=== PATIENT | female | born 1960 | race Caucasian/White ===

== ENCOUNTER 2023-12-17 10:17 | Emergency (ER) | payer BC, SELFPAY ==
--- NOTE | ~2023-12-17 | XR_ITS ---
EXAMINATION: XR chest 2V 12/17/2023 10:55 INDICATION: Cough PROCEDURE: 2 view chest COMPARISON: No prior studies for comparison. FINDINGS: The lungs are clear. The cardiomediastinal silhouette is within normal limits. There are no pleural effusions. There is no pneumothorax suspected. IMPRESSION: 1: NO ACUTE CARDIOPULMONARY DISEASE. Reviewed, dictated and finalized at location A.
[2023-12-17 10:24] VITALS: BP 126/48; PULSE 82; RESP 20; TEMP 37; O2SAT 100
--- NOTE | 2023-12-17 10:41 | ED_ITS ---
HPI - General Adult General Chief complaint: Upper Respiratory Infection Stated complaint: Ear Problem/Chest Congestion Source: patient Mode of arrival: ambulatory Limitations: no limitations History of Present Illness HPI narrative: Patient presents for evaluation of sick symptoms. Symptom onset 4 days ago. She initially had bilateral ear pain. She then developed a frontal headache, sinus congestion, postnasal drip. She now has a sore throat, productive cough green sputum and shortness of breath. No fever, chills, nausea, vomiting. She works for the [employer] but is not aware of any specific sick contacts. She has been using an albuterol inhaler every 3 hours. She also has been taking Mucinex DM. She was given amoxicillin by her PCP without Related Data Home Medications Medication Instructions Recorded Confirmed albuterol sulfate 90 mcg/actuation See Rx Instructions .Route .COMPLEX 12/17/23 12/17/23 aerosol inhaler amoxicillin 875 mg tablet See Rx Instructions .Route .COMPLEX 12/17/23 12/17/23 lisinopril 10 1 tablet PO DAILY 12/17/23 12/17/23 mg-hydrochlorothiazide 12.5 mg tablet Allergies Allergy/AdvReac Type Severity Reaction Status Date / Time No Known Allergies Allergy Unknown Unverified 12/17/23 10:40 Review of Systems Review of Systems: CONSTITUTIONAL: Denies fever, chills, or sweats. EYES: Denies visual changes, redness, or discharge. ENT: Reports sinus congestion, thick green drainage from the nares, sore throat, and bilateral otalgia. CARDIOVASCULAR: Denies chest pain, palpitations, or edema. RESPIRATORY: Reports cough and shortness of breath GASTROINTESTINAL: Denies abdominal pain, nausea, vomiting, or diarrhea. GENITOURINARY: Denies dysuria or hematuria. SKIN: Denies rash or itching. MUSCULOSKELETAL: Denies back pain, joint pain, or myalgia. NEUROLOGIC: Reports headache. Denies numbness, dizziness, or weakness. PSYCHIATRIC: Denies anxiety or depression. [facility] Past Medical History Medical History Hypertension Surgical History Surgical History History of appendectomy History of cholecystectomy Family History Family History Mother Family history non-contributory Social History Social History Substance use: never Gender identity (if verbalized by the patient): Female Exam Narrative: GENERAL: Well-appearing, well-nourished, and in no acute distress. HEAD: Normocephalic, atraumatic. EYES: PERRLA and EOMI. ENT: Nares clear, no rhinorrhea or epistaxis. Mucous membranes moist. Oropharynx without tonsillar hypertrophy exudate or other lesions. Bilateral TMs pearly dyer nonbulging NECK: Supple. No adenopathy or masses. No carotid bruits or JVD CHEST: Cough present on exam. Clear to auscultation. No respiratory distress. No wheezes rales or rhonchi HEART: Regular rate and rhythm. No murmur heard. Normal peripheral pulses. ABDOMEN: Soft, nontender, nondistended, normal active bowel sounds. EXTREMITIES: Normal range of motion. No edema. SKIN: Warm, dry, no rash. NEURO: No focal deficits. Alert and oriented x3. PSYCH: Normal mood and affect. Course Course Emergency Course: This is a 63-year-old female who presented for evaluation of sick symptoms. COVID, flu, strep were negative. Chest x-ray normal. She reports wheezing at home so will dc with prednisone. Increase hydration. OTC agents for symptom management. Follow up with primary provider. Go to the ER for worsening symptoms. Pt in agreement with plan of care. Level of Care: Express Care Visit Vital Signs Vital signs: Vital Signs Temperature 37.0 C 12/17/23 10:24 Pulse Rate 82 12/17/23 10:24 Respiratory Rate 20 12/17/23 10:24 Blood Pressure 126/48 L 12/17/23 10:24 Pulse Oximetry 100 12/17/23 10:24 Oxygen Delivery Room Air 12/17/23 10:24 Temperature 37.0 C 12/17/23 10:47 Pulse Rate 82 12/17/23 10:47 Respiratory Rate 20 12/17/23 10:47 Blood Pressure 126/48 L 12/17/23 10:47 Pulse Oximetry 100 12/17/23 10:47 Oxygen Delivery Room Air 12/17/23 10:47 Medical Decision Making Vital Signs Vital Signs: Vital Signs Temperature 37.0 C 12/17/23 10:24 Pulse Rate 82 12/17/23 10:24 Respiratory Rate 20 12/17/23 10:24 Blood Pressure 126/48 L 12/17/23 10:24 Pulse Oximetry 100 12/17/23 10:24 Oxygen Delivery Room Air 12/17/23 10:24 Temperature 37.0 C 12/17/23 10:47 Pulse Rate 82 12/17/23 10:47 Respiratory Rate 20 12/17/23 10:47 Blood Pressure 126/48 L 12/17/23 10:47 Pulse Oximetry 100 12/17/23 10:47 Oxygen Delivery Room Air 12/17/23 10:47 Lab Data Labs: Influenza B Screen Negative Reference Range: Negative Strep Screen Presumptive Negative *(Reference Range: Negative)* Imaging Data Radiologist's impression: EXAMINATION: XR chest 2V 12/17/2023 10:55 INDICATION: Cough PROCEDURE:? 2 view chest COMPARISON: No prior studies for comparison. FINDINGS: The lungs are clear.? The cardiomediastinal silhouette is within normal limits.? There are no pleural effusions.? There is no pneumothorax suspected.? IMPRESSION: 1:? NO ACUTE CARDIOPULMONARY DISEASE. Discharge Plan Discharge Clinical Impression: Viral URI Patient Disposition: Home, Self-Care Condition: Stable Instructions: Antibiotic Form, Viral Syndrome (ED) Patient Language: Citizen Of [place] Prescriptions: New prednisone 50 mg tablet 50 mg PO DAILY Qty: 5 0RF No Action lisinopril-hydrochlorothiazide 10-12.5 mg tablet 1 tablet PO DAILY albuterol sulfate 90 mcg/actuation HFA aerosol inhaler See Rx Instructions .ROUTE .COMPLEX Rx Instructions: previously prescribed a long time ago amoxicillin 875 mg tablet See Rx Instructions .ROUTE .COMPLEX Rx Instructions: prescribed 4 days ago Follow-up/Referrals: Bernice,LEO Bradford [Primary Care Provider] - Time of Disposition: 11:13
[2023-12-17 10:47] VITALS: BP 126/48; PULSE 82; RESP 20; TEMP 37; O2SAT 100
== END 2023-12-17 11:15 | disposition home or self-care (01) ==
PROVIDERS: Emergency Provider Nurse Practitioner; PCP Physician Assistant
DX: J06.9 Acute upper respiratory infection, unspecified (principal); Z20.822 Contact with and (suspected) exposure to COVID-19; I10 Essential (primary) hypertension
CPT/HCPCS: 71046; 87081; 87426; 87804; 87880; 99203; G0463

== ENCOUNTER 2024-05-27 19:25 | Emergency (ER) | payer MEDICARE, BC, SELFPAY ==
[2024-05-27 19:33] VITALS: BP 123/53; PULSE 89; RESP 20; TEMP 36.8; O2SAT 97
--- NOTE | 2024-05-27 19:39 | ED.WOUNDLAC ---
HPI - Wound/Laceration General Chief Complaint: Wound/Laceration Stated Complaint: Laceration To Thumb History of Present Illness HPI narrative: Patient is a 64-year-old female, presents to Express Care with a laceration of the left thumb, volar aspect, sustained yesterday when she was using a knife to chip ice. She states she sustained a flap laceration that she cleaned under running water before applying pressure and controlling bleeding. She reports the area has been sore to touch since that time, she has had no further bleeding however she was concerned that the laceration was so deep she did evaluation today. She is right-hand dominant, she is uncertain when her last tetanus vaccination was received. She denies any additional associated symptoms or modifying factors. Related Data Home Medications Medication Instructions Recorded Confirmed lisinopril 10 1 tablet PO DAILY 12/17/23 05/27/24 mg-hydrochlorothiazide 12.5 mg tablet Allergies Allergy/AdvReac Type Severity Reaction Status Date / Time No Known Allergies Allergy Unknown Unverified 05/27/24 19:40 Review of Systems Integumentary/Breasts: Comments: refer to [facility] Past Medical History Medical History Hypertension Surgical History Surgical History History of appendectomy History of cholecystectomy Family History Family History Mother Family history non-contributory Social History Social History Substance use: never Gender identity (if verbalized by the patient): Female Exam Const: General: cooperative, healthy appearing and comfortable Nutritional Appearance: obese Orientation/consciousness: patient oriented x3 Limitations: no limitations HENMT: Head: normal to inspection Face/Nose/Sinus: Normal external nose present and Normal nares present Mouth: Yes lip normal Eyes: General: appearance normal, both eyes and all related structures Eyelids: eyelids normal Conjunctivae: conjunctivae normal Sclera: sclerae normal EOM: EOMs intact bilaterally Neck: Neck: normal visual inspection, full ROM, no meningeal signs and trachea midline Resp: Effort & Inspection: normal respiratory effort Auscultation: clear to auscultation bilaterally Cardio: Rate: regular rate Heart sounds: S1 normal heart sound present and S2 normal heart sound present Skin: Wounds: wounds noted Other: patient has a v-shaped flap laceration noted to the volar aspect of the left thumb along the radial side of the digit. There is no active bleeding, the wound margin is well approximated, there is no lymphangitis, no drainage or bleeding from the wound. Distal PMS intact Neuro: General: oriented to person, oriented to place, oriented to time and patient oriented x3 Cranial nerves: Yes CN's II-XII intact bilaterally Speech: normal speech Gait exam (Neuro): Normal gait present Motor exam (neuro): 5/5 motor strength present throughout Extrem: General: full ROM Course Course Emergency Course: laceration is greater than 12 hours old, will defer repair at this time as risk benefit discussion; concerned for increased recent infection repairing at this time. Will treat with oral antibiotics, a splint is placed for protection, follow-up with PCP for wound check in 3 days, sooner if healing concerns arise. A tetanus booster is provided. Patient verbalized understanding of instructions Level of Care: Express Care Visit ([id number]) MDM - Wound/Laceration MDM Narrative Medical decision making narrative: and she is agreeable discharged plan of care. Tdap, cephalexin, splint for protection Differential Diagnosis Differential diagnosis: Likely laceration and avulsion of skin Discharge Plan Discharge Clinical Im
[2024-05-27] MEDS: TETANUS,DIPHTHERIA,AC PERTUSSIS ADULT (0.5 ML) BOOSTRIX IM (19:49)
== END 2024-05-27 20:11 | disposition home or self-care (01) ==
PROVIDERS: Emergency Provider Nurse Practitioner Family; PCP Physician Assistant
DX: S61.012A Laceration without foreign body of left thumb without damage to nail, initial encounter (principal); W26.0XXA Contact with knife, initial encounter; I10 Essential (primary) hypertension; Z23 Encounter for immunization
CPT/HCPCS: 90471; 90715; 99213; G0463

== ENCOUNTER 2025-06-04 11:01 | Emergency (ER) | payer MEDICARE, MEDICAID, SELFPAY ==
[2025-06-04 11:07] VITALS: BP 135/64; PULSE 83; RESP 18; TEMP 36.5; O2SAT 98
--- NOTE | 2025-06-04 11:13 | ED.EAR ---
HPI - Ear Problem General Chief complaint: Ear Stated complaint: Ear Pain Time Seen by Provider: 06/04/25 11:14 Source: patient, RN notes reviewed and old records reviewed Mode of arrival: ambulatory Limitations: no limitations History of Present Illness HPI Narrative: 65-year-old female who presents to [facility] with complaints of left ear pain since yesterday evening. Patient reports that she does have history of seasonal allergies and takes daily Zyrtec,denies any sore throat, cough or any acute sinus congestion or any fevers. Patient reports that left ear started hurting yesterday evening and has been taking Tylenol and ibuprofen for her discomfort. MD Complaint: ear pain Location: left ear Severity: severe Discharge from ear: Reports no Treatment prior to arrival: oral analgesic (Tylenol and Ibuprofen) Related Data Home Medications ?Medication ?Instructions ?Recorded ?Confirmed ?Last Taken ?Type lisinopril 10 1 tablet PO DAILY 12/17/23 05/27/24 Unknown History mg-hydrochlorothiazide 12.5 mg tablet Allergies Allergy/AdvReac Type Severity Reaction Status Date / Time No Known Allergies Allergy Unknown Verified 06/04/25 11:06 Review of Systems Review of Systems: CONSTITUTIONAL: Denies malaise, chills, sweats, or fever. EYES: Denies visual changes, redness, or discharge. ENT: Reports no rhinorrhea, congestion, sinus pain, states left otalgia and no sore throat. CARDIOVASCULAR: Denies chest pain, palpitations, or edema. RESPIRATORY: Reports no cough.? Denies dyspnea. GASTROINTESTINAL: Denies abdominal pain, nausea, vomiting, diarrhea SKIN: Denies rash or itching. MUSCULOSKELETAL: Denies myalgia. NEUROLOGIC: Denies headache. All systems reviewed & are unremarkable except as noted in HPI and below [facility] Past Medical History Medical History (Updated 06/05/25 @ 08:37 by Carmel Anderson NP) Seasonal allergies History of sinus problem GERD (gastroesophageal reflux disease) Hypertension Surgical History Surgical History (Updated 06/05/25 @ 08:36 by Carmel Anderson NP) H/O inguinal hernia repair H/O section x2 History of cholecystectomy History of appendectomy Family History Family History Mother Family history non-contributory Social History Social History Substance use: never Gender identity (if verbalized by the patient): Female Comments At time of signature, agree with nursing past medical, surgical, social and family history. There is no relevant family history pertinent to the presenting complaint Exam Narrative: GENERAL: Well-appearing, well-nourished, and in no acute distress. HEAD: Normocephalic EYES: PERRLA, conjunctivae clear ENT: Nares clear, turbinates edematous and erythematous, clear discharge. Mucous membranes moist. TM pearly dyer with dull light reflex bilaterally; Left ear canal red with some excoriation no acute swelling of canal,no tragal tenderness. Oropharynx erythematous without lesions. Tonsils not enlarged and without exudate, no drooling, no hoarseness, no trismus, uvula midline. NECK: Supple. No lymphadenopathy CHEST: Clear to auscultation, breath sounds equal. No wheezing, rhonchi, rales, or stridor. No respiratory distress, speaks in full sentences.no cough noted SAO2 98% on room air HEART: Regular rate and rhythm. No murmur heard. SKIN: Warm, dry, no rash. NEURO: Alert and oriented x3. PSYCH: Normal mood and affect Course Course Emergency Course: Patient is aware of diagnosis, understands and agrees to treatment plan.? Anticipatory guidance given.? Patient agrees to follow-up as directed and is aware of reasons to seek care at the emergency department. Portions of this record may have been created with voice recognition software Level of Care: Express Care Visit Vital Signs Vital signs: Vital Signs Temperature 36.5 C 06/04/25 11:07 Pulse Rate 83 06/04/25 11:07 Respiratory Rate 18 06/04/25 11:07 Blood Pressure 135/64 06/04/25 11:07 Pulse Oximetry 98 06/04/25 11:07 Oxygen Delivery Room Air 06/04/25 11:07 Temperature 36.5 C 06/04/25 11:07 Pulse Rate 83 06/04/25 11:07 Respiratory Rate 18 06/04/25 11:07 Blood Pressure 135/64 06/04/25 11:07 Pulse Oximetry 98 06/04/25 11:07 Oxygen Delivery Room Air 06/04/25 11:07 Reviewed Medical Decision Making Differential Diagnosis Differential Diagnosis: URI, otitis externa, otitis media, viral infection Medical Records Medical records reviewed: Yes I reviewed the external patient's medical records. Vital Signs Vital Signs: Vital Signs Temperature 36.5 C 06/04/25 11:07 Pulse Rate 83 06/04/25 11:07 Respiratory Rate 18 06/04/25 11:07 Blood Pressure 135/64 06/04/25 11:07 Pulse Oximetry 98 06/04/25 11:07 Oxygen Delivery Room Air 06/04/25 11:07 Temperature 36.5 C 06/04/25 11:07 Pulse Rate 83 06/04/25 11:07 Respiratory Rate 18 06/04/25 11:07 Blood Pressure 135/64 06/04/25 11:07 Pulse Oximetry 98 06/04/25 11:07 Oxygen Delivery Room Air 06/04/25 11:07 reviewed Critical Care Time Critical Care Time Critical Care Time: No Discharge Plan Discharge Clinical Impression: Left otitis externa Qualifiers: Otitis externa type: diffuse Chronicity: acute Qualified Code(s): H60.312 - Diffuse otitis externa, left ear Patient Disposition: Home Condition: Stable Instructions: Antibiotic Form, Swimmer's Ear (GEN) Additional Instructions: Increase fluids especially juices and water [id number] cough and cold medicine of your choice for your symptoms Continue Zyrtec Claritin or Brooke daily Tylenol or ibuprofen for any fever pain per package instructions heat to the face 20-30 minutes 4-6 times a day for pain Salt water gargles, throat lozenges or throat sprays as desired Antibiotic ear drops to left ear as prescribed finish all doses If your symptoms persist, change or worsen significantly before you can contact your personal physician then please, without delay, go to the emergency department for further evaluation. Follow-up with PCP in 7-10 days or sooner if needed Follow up with PCP soon in regards to your blood pressure which is elevated above threshold for referral. Blood pressure above 120/80 may indicate pre-hypertension. 135/64 Patient Language: Nepali Prescriptions: New ofloxacin 0.3 % drops 5 drp LEFT EAR BID 7 Days Qty: 10 0RF No Action lisinopril-hydrochlorothiazide 10-12.5 mg tablet 1 tablet PO DAILY Follow-up/Referrals: Bernice,LEO Bradford [Primary Care Provider] Time of Disposition: 11:24 Quality Shanna Coma Scale Eyes: Open Verbal: Oriented and Alert Motor: Follows Commands Page Coma Total Score: 15
== END 2025-06-04 11:28 | disposition home or self-care (01) ==
PROVIDERS: Emergency Provider Registered Nurse; PCP Physician Assistant
DX: H60.312 Diffuse otitis externa, left ear (principal); I10 Essential (primary) hypertension; K21.9 Gastro-esophageal reflux disease without esophagitis
CPT/HCPCS: 99213; G0463

== ENCOUNTER 2025-07-27 19:35 | Emergency (ER) | payer MEDICARE, MEDICAID, SELFPAY ==
--- OUTSIDE RECORDS SUMMARY | 2025-07-27 19:38 | XMS_ITS | Clinical Summary ---
Author Organization [facility] Address [address] [place] [address] Phone Care Team Providers Care Insights Analyst Name Role Phone Sang Queen Primary Care Provider [phone] Allergies No known active allergies Medications lisinopril-hydr ochlorothiazide (PRINZIDE, ZESTORETIC) 10-12.5 MG Tablet Take 1 Tab by mouth daily. Active Ranitidine HCl 300 MG Capsule Take by mouth daily. Active HYDROcodone-usman taminophen (NORCO) 5-325 MG Tablet Take 1 Tab by mouth every 4 hours as needed for Pain. 14 Tab 0 10/05/2015 Active cyclobenzaprine (FLEXERIL) 10 MG Tablet Take 0.5 Tabs by mouth 3 times daily as needed for Muscle spasms. 10 Tab 0 10/05/2015 Active HYDROcodone-usman taminophen (NORCO) 5-325 MG TabletIndicatio ns:Pain, dental Take 1 Tablet by mouth every 6 hours as needed for Moderate or more severe pain. 12 Tablet 06/30/2023 Active Social History Tobacco Use Types Packs/Day Years Used Date Smoking Tobacco: Never Alcohol Use Standard Drinks/Week Comments Yes 0 (1 standard drink = 0.6 oz pur e alcohol) seldom Comments No Sex and Gender Information Value Date Recorded Sex Assigned at Not on file Legal Sex Female 7:59 PM CDT Gender Identity Not on file Sexual Orientation Not on file Last Filed Vital Signs Vital Sign Reading Time Taken Comments Blood Pressure 125/72 06/30/2023 6:01 PM CDT Pulse 86 06/30/2023 6:01 PM CDT Temperature 36.1 C (97 F) 06/30/2023 6:01 PM CDT Respiratory Rate 16 06/30/2023 6:01 PM CDT Oxygen Saturation 98% 06/30/2023 6:01 PM CDT Inhaled Oxygen Concentration - - Weight 125 kg (275 lb 9.2 oz) 06/30/2023 6:01 PM CDT Height 165.1 cm (5' 5) 06/30/2023 6:01 PM CDT Body Mass Index 45.86 06/30/2023 6:01 PM CDT Plan of Treatment Health Maintenance Due Date Last Done Comments DEXA Bone Density 1960 Hepatitis C Virus (HCV) Screening 1960 Mammogram 1960 TdaP Immunization 1958 Cologuard 2003 Immunochemical Fecal Occult Blood 2003 Pneumococcal Immunization (5 0+ years) (1 of 1 - PCV) 02/03/2008 Zoster Immunization (1 of 2) 02/03/2008 Respiratory Syncytial Virus (RSV) Immunization (Adult) (1 - Risk 60-74 years 1-dose series) 2018 Colonoscopy 11/02/2022 11/02/2012, 05/14/2010 Colorectal Cancer Screening 11/02/2022 Influenza Immunization (#1) 04/28/202505/29, 06/05/2017 SARS-COV-2 Immunization ( season) 2025 Hepatitis B Immunization Aged Out No longer eligible based on patient's age to complete this topic Human Papillomavirus (HPV) Immunization Aged Out No longer eligible b ased on patient's age to complete this topic Meningococcal Immunization (ACWY) Aged Out No longer eligible b ased on patient's age to complete this topic Rotavirus Immunization Aged Out No lo nger eligible based on patient's age to complete this topic Procedures Procedure Name Priority Date/Time Associated Diagnosis Comments COLONOSCOPY Routine 11/02/2012 from Last 3 Months or Most Recently Relevant to Health Maintenance Results * COLONOSCOPY (11/02/2012) Hubert Tomas MD PROCEDURE/MINOR SURGICAL ORDER LESIA Final Result from Last 3 Months or Most Recently Relevant to Health Maintenance Insurance MEDICARE [facility] Care Teams Insights Analyst Relationship Specialty Start Date End Date Sang Queen, ESTHER [address] [place] [address] PCP - General Physician Mapping Editor 07/15/15
--- OUTSIDE RECORDS SUMMARY | 2025-07-27 19:38 | XMS_ITS | Encounter Summary ---
Author Organization [facility] Address [address] [place] [id number] Care Team Providers Care Reimbursement Auditor Name Role Phone Sang Queen Primary Care Provider [phone] Encounter Details Date Type Department Care Team (Late st Contact Info) Description 08/27/2018 Community Orders [facility] EpicCare Link Sang Queen PA [address] [place] [address] Social History Tobacco Use Types Packs/Day Years Used Date Smoking Tobacco: Never Assessed Alcohol Use Standard Drinks/Week Comments No 0 (1 standard drink = 0.6 oz pur e alcohol) Comments Unknown Sex and Gender Information Value Date Recorded Sex Assigned at Not on file Legal Sex Female 1:36 AM R[employer]ST[employer] Gender Identity Not on file Sexual Orientation Not on file documented as of this encounter Plan of Treatment Not on file documented as of this encounter Visit Diagnoses Not on filedocumented in this encounter Care Teams Reimbursement Auditor Relationship Specialty Start Date End Date Sang Queen PA [address] [place] [address] PCP - General 11/20/16 documented as of this encounter
--- OUTSIDE RECORDS SUMMARY | 2025-07-27 19:39 | XMS_ITS | Clinical Summary ---
Author Organization [facility] Address [address] [place] [address] Care Team Providers Care Flatbed Stitcher Name Role Phone Sang Queen Primary Care Provider [phone] Allergies No known active allergies Medications benzonatate (TESSALON) 100 mg capsule TAKE 1 CAPSULE BY MOUTH THREE TIMES DAILY FOR UP TO 10 DAYS NEEDED FOR COUGH 02/24/2023 Active albuterol HFA (PROVENTIL HFA,VENTOLIN HFA,PROAIR HFA) 90 mcg/actuation inhaler 03/21/2023 Active Active Problems Problem Noted Date Diagnosed Date Hernia of anterior abdominal wall 07/03/2012 Overview (12/02/2016): Periumbilical hernia Surgical History Surgery Date Site/Laterality Comments UMBILICAL HERNIA REPAIR umbilical hernia OTHER SURGICAL HISTORY multiple surgeries for scalp laceration CHOLECYSTECTOMY Cholecystectomy SECTION section APPENDECTOMY Appendectomy HERNIA REPAIR 2007 Hernia repair APPENDECTOMY 1978 Appendectomy Medical History Medical History Date Comments History of multiple allergies Al elier Family History Medical History Relation Name Comments Lung cancer Father 2 Cancer -lung; C ause of : Cancer -lung Hypertension Mother 2 Hypertension; Other Mother 2 Alive and well; Lung cancer Other Family history of Cancer, lung; Other Other Family history of cancer, gastric; Relation Name Status Comments Father 1 (Age 82) Father 2 Mother 1 Alive Mother 2 Other Social History Tobacco Use Types Packs/Day Years Used Date Smoking Tobacco: Never Passive Smoke Exposure: Never Smokeless Tobacco: Never Tobacco Cessation:Counseling Given: Not Answered Alcohol Use Standard Drinks/Week Comments No 0 (1 standard drink = 0.6 oz pur e alcohol) Comments No Sex and Gender Information Value Date Recorded Sex Assigned at Not on file Legal Sex Female 1:36 AM FAMILY LAW MEDIATOR Gender Identity Not on file Sexual Orientation Not on file Last Filed Vital Signs Vital Sign Reading Time Taken Comments Blood Pressure 128/80 04/01/2023 3:33 PM CDT Pulse 101 04/01/2023 3:33 PM CDT Temperature 36.8 C (98.3 F) 04/01/2023 3:33 PM CDT Respiratory Rate 20 04/01/2023 3:33 PM CDT Oxygen Saturation 96% 04/01/2023 3:33 PM CDT Inhaled Oxygen Concentration - - Weight 129.3 kg (285 lb) 04/24/2025 10:17 AM CDT Height 165.1 cm (5' 5) 04/24/2025 10:17 AM CDT Body Mass Index 47.43 04/24/2025 10:17 AM CDT Plan of Treatment Health Maintenance Due Date Last Done Comments Depression Screening 1960 Fall Risk Assessment 1960 Hepatitis C Screening 1960 Osteoporosis Screening-Bone Density Scan 1960 Hepatitis B Screening 02/03/1976 Pneumococcal vaccine 65+ (1 of 1 - PCV) 02/03/2008 Zoster Vaccine (1 of 2) 02/03/2008 Colon Cancer Screening-Colonoscopy 05/14/20202009 Well Visit 65+ 2023 Influenza Vaccine (#1) 2025 06/19/2018, 2016 Breast Cancer Screening-Mammogram 04/24/2026 04/24/2025, 04/06/2024, 03/01/2013 DTaP/Tdap/Td Vaccine (2 - Td or Tdap) 05/27/2034 05/27/2024 Colon Cancer Screening-CT Colonography Discontinued 05/14/2010 Colon Cancer Screening-DNA Stool Discontinued 05/14/20 10 Colon Cancer Screening-FIT Discontinued 05/14/2010 Colon Cancer Screening-Sigmoidoscopy Discontinued 04/28 Procedures Procedure Name Priority Date/Time Associated Diagnosis Comments DIAGNOSTIC MAMMOGRAM BILATERAL W LANE Schedule Routine, Read Routine (OP Routine) 04/24/2025 10:25 AM CDT Other abnormal and inconclusive findings on diagnostic imaging of breast COLONOSCOPY 05/14/2010 12:00 AM CDT from Last 3 Months or Most Recently Relevant to Health Maintenance Results * Diagnostic Mammogram Bilateral W Lane (04/24/2025 10:25 AM CDT) Anatomical Region Laterality Modality Breast Bilateral Mammography 04/24/2025 11:2 2 AM CDT Impressions 04/24/2025 11:22 AM CDT Lesion in the right breast is slightly smaller and will continue to be classified as probably benign. A follow-up bilateral diagnostic mammogram and right breast ultrasound are recommended in 12 months. The results were discussed with the patient. OVERALL FINAL ASSESSMENT: BI-RADS Category 3: Probably Benign. RECOMMENDATION: A follow-up bilateral diagnostic mammogram and right breast ultrasound are recommended in 12 months. Electronically signed by: Ana Ferrell M.D. Narrative 04/24/2025 11:22 AM CDT EXAMINATION: BILATERAL DIGITAL DIAGNOSTIC MAMMOGRAM INCLUDING CAD AND BILATERAL DIGITAL BREAST TOMOSYNTHESIS; RIGHT BREAST SONOGRAM HISTORY: Follow-up probably benign lesion in the right breast. COMPARISON: 05/29/2024, 04/06/2024, 03/01/2013, 11/26/2011 TECHNIQUE: Full field digital mammographic views of BOTH breasts were performed, including computer aided detection (CAD) and BILATERAL digital breast tomosynthesis (DBT). Directed ultrasound evaluation of the RIGHT breast was performed. BREAST PARENCHYMAL COMPOSITION: There are scattered areas of fibroglandular density. MAMMOGRAM FINDINGS: The previously seen mass at the 3 o'clock position of the right breast, middle depth may be slightly smaller. No other suspicious masses, calcifications or other significant findings are seen in either breast. Further evaluation was obtained with sonography. SONOGRAM FINDINGS: At the 3 o'clock position of the right breast, 10 cm from the nipple, slightly heterogeneous hypoechoic lesion is again seen. This measures 0.8 x 0.8 x 0.7 cm. It previously measured 1.0 x 0.7 x 0.7 cm. There is no internal vascularity. This may be a complex cyst and will continue to be classified as probably benign. us Sang BAILEY IMG MAMMO PROCEDURES Final Re sult * COLONOSCOPY (05/14/2010 12:00 AM CDT) Anatomical Region Laterality Modality Other Narrative 05/14/2010 12:00 AM CDT Ordered by an unspecified provider. Procedure Note Provider, MD Solo - 05/14/2010 12:00 AM CDT PROCEDURE REPORT Patient: DAGOBERTO JO Account: [id number] Room No: : 1960 Patient Type: OPA Attend.: Ami Myers M.D. Admit Date: 05/14/2010 Dict.: Ami Myers M.D. Disch. Date:05/14/2010 NAME OF PROCEDURE: Colonoscopy with polypectomy. DATE OF PROCEDURE: 05/14/2010 INDICATION: Bleeding per rectum, screening for colon cancer. PRIMARY CARE PHYSICIAN: Dr. Eric Allred BRIEF HISTORY AND PHYSICAL: The patient is a 50-year-old white female.She has occasional episodes of noticing blood in the stool. No familyhistory of colon cancer. PROCEDURE: Sedation was provided by the anesthesia service. Theprocedure of colonoscopy, including indications and possible complications ofbleeding, infection, and perforation requiring surgery, were discussed with thepatient and consent was obtained. All vital signs were monitored during the procedure. Rectal examination prior to colonoscopy showed medium size external hemorrhoids. The scope was introduced in the rectum andadvanced all the way to the cecum. The cecum was identified by the ileocecalvalve and appendiceal orifice. The ascending colon, transverse colon, and descending colon were normal. There was a 6 mm sessile andbenign-appearing polyp in the distal sigmoid colon. The polyp was removed by snare polypectomy. The rectum was unremarkable. Retroflexion in the rectumshowed small internal hemorrhoids. IMPRESSION: 1. 6 mm sessile and benign-appearing polyp in the distal sigmoidcolon, removed by snare polypectomy. 2. Internal and external hemorrhoids. RECOMMENDATIONS: 1) Maintain high fiber diet, 2) follow up pathology report. Alexandria Llanos/deidra TD: 05/18/2010 10:46 CC: Dr. Eric Allred PROCEDURE REPORT Authenticated by Ami Myers MD On 05/22/2010 10:07:42 AM us Historical Provider ENDOSCOPY PROCEDURES Blanca l Result from Last 3 Months or Most Recently Relevant to Health Maintenance Insurance SHERPA assistant [place] SHERPA assistant [place] MEDICARE IDDC Care Teams Flatbed Stitcher Relationship Specialty Start Date End Date Sang Queen PA [address] [place] [address] PCP - General 11/20/16
--- OUTSIDE RECORDS SUMMARY | 2025-07-27 19:40 | XMS_ITS | Data Portability ---
Author Organization [facility] CHARISMA Duran Darling Address [address] [facility] [place] [address] Care Team Providers Care Camp Guard Name Role Phone RICK EDWIN Roustabout Crew Pusher DINH QUEEN Primary Care Provider [phone] Assessment No assessment recorded. Plan of Treatment Reminders Order Date Submit Date Provider Last Modified By Organization Details Last Modified Time Details Appointments None recorded. Lab influenza virus A + B + SARS-CoV-2 (COVID19) Ag panel, rapid IA, upper respirator y specimen 2024 025 jnanney In-Office Order, Internal Use Only DO Not Attach Compendium DO Not Attach Compendium, Do Not Delete/merge, [id number] 5 12:36:26 rapid strep group A, throat 2024 025 jnanney In-Office Order, Internal Use Only DO Not Attach Compendium DO Not Attach Compendium, Do Not Delete/merge, [id number] 5 12:36:26 CBC 2023 024 [facility], [address] [facility] [address], [address], 4 09:14:10 CMP, serum or plasma 2023 024 [facility], [address] [facility] [address], [place], [address], 4 09:14:08 lipid panel, serum 2023 024 [facility], [address] [place] [address], [address], 4 09:14:06 HbA1c (hemoglobi n A1c), blood 2023 024 [facility] In-Office Order, Internal Use Only DO Not Attach Compendium DO Not Attach Compendium, Do Not Delete/merge, [id number] 4 11:33:15 influenza virus A + B + SARS-CoV-2 (COVID19) Ag panel, rapid IA, upper respirator y specimen 2023 024 YURIY In-Office Order, Internal Use Only DO Not Attach Compendium DO Not Attach Compendium, Do Not Delete/merge, 4 17:18:30 rapid strep group A, throat 2023 024 Y[facility] In-Office Order, Internal Use Only DO Not Attach Compendium DO Not Attach Compendium, Do Not Delete/merge, [id number] 4 17:18:43 influenza virus A + B + SARS-CoV-2 (COVID19) Ag panel, rapid IA, upper respirator y specimen 2023 024 [facility] In-Office Order, Internal Use Only DO Not Attach Compendium DO Not Attach Compendium, Do Not Delete/merge, [id number] 4 16:08:18 Referral None recorded. Procedures None recorded. Surgeries None recorded. Imaging None recorded. Medication Orders Tamiflu 75 mg capsule 2024 025 [facility], [address] [place], [address], 5 12:36:27 amoxicilli n 875 mg tablet 2024 025 [facility], [address] [place], [address], 5 12:15:23 cetirizine 10 mg capsule 2023 024 [facility], [address] [place], [address], 4 16:51:38 Tessalon Perles 100 mg capsule 2023 024 [facility], [address] [place], [address], 4 10:35:21 fluticason e propionate 50 mcg/actuat ion nasal spray,susp ension 2023 024 [facility], [address] [place], [address], 4 16:51:40 Paxlovid 300 mg (150 mg x 2)-100 mg tablets in a dose pack 2023 024 [facility], [address] [place], [address], 4 10:29:12 Paxlovid 300 mg (150 mg x 2)-100 mg tablets in a dose pack 2023 024 [facility], [address] [place], [address], 4 10:28:41 lisinopril 10 mg-hydroch lorothiazi de 12.5 mg tablet 2023 024 [facility], [address] [place], [address], 4 16:11:18 albuterol sulfate HFA 90 mcg/actuat ion aerosol inhaler 2023 024 [facility], [address] [place], [address], 4 16:11:17 Flonase Allergy Relief 50 mcg/actuat ion nasal spray,susp ension 2023 024 [facility], [address] [facility], [place], [address], 16:12:50 Patient TargetsNo targets recorded. Patient Instructions Encounter Date Encounter Id Patient Instructions Last Modified By Organization Details Last Modified Time 11/17/2023 [id number] A healthy lifestyle: care instructions jnanney Not available 11/17/2023 16:11:04 upper respirator y infection (cold): care instructions jnanney Not available 11/17/2023 16:08:16 05/14/2024 [id number] influenza (flu): care instructions [email or web address] Not available 05/14/2024 16:51:51 10 things to do when you have covid-19 [email or web address] Not available 05/14/2024 16:51:51 coronavirus (covid-19): care instructions [email or web address] Not available 05/14/2024 16:51:51 Plan of care has been discussed with patient including expected therapeutic benefits and potential side effects of prescribed medication and treatments. Patient verbalizes understanding and is in agreement with the plan of care. Patient was instructed to keep all scheduled appointments and contact the clinic for any additional problems. Not available 05/15/2024 14:37:47 07/19/2024 [id number] A healthy lifestyle: care instructions jnanney Not available 07/19/2024 10:47:38 learning about high blood pressure jnanney Not available 07/19/2024 10:47:23 09/26/2024 [id number] A healthy lifestyle: care instructions jnanney Not available 09/26/2024 14:38:15 10/11/2024 [id number] sore throat: car e instructions jnanney Not available 10/11/2024 12:36:26 When You Want to Lose Weight: Care Instructions jnanney Not available 10/11/2024 12:36:44 Reason for Referral None Reported. Results Created Date Observation Date Name Description Value Unit Range Abnormal Flag Note LastModifiedBy Organization Detail LastModifiedTime 11/17/19 24 11/17/2023 influ isaak virus A + B + SARS- CoV-2 (COVI D19) Ag panel , rapid IA, upper respi rator y speci men Flu A negati ve Not Available In-Office Order Internal Use Only DO Not Attach Compendium DO Not Attach Compendium, Do Not Delete/merge, [id number] 11/17/2023 15:52:36 11/17/19 24 11/17/2023 influ isaak virus A + B + SARS- CoV-2 (COVI D19) Ag panel , rapid IA, upper respi rator y speci men Flu B negati ve Not Available In-Office Order Internal Use Only DO Not Attach Compendium DO Not Attach Compendium, Do Not Delete/merge, [id number] 11/17/2023 15:52:36 11/17/19 24 11/17/2023 influ isaak virus A + B + SARS- CoV-2 (COVI D19) Ag panel , rapid IA, upper respi rator y speci men Rapid SARS CoV 2 Ag, QL IA, respiratory specimen positi ve Not Available In-Office Order Internal Use Only DO Not Attach Compendium DO Not Attach Compendium, Do Not Delete/merge, [id number] 11/17/2023 15:52:36 05/14/20 24 05/14/2024 rapid strep group A, throa t Strep negati ve Not Available In-Office Order Internal Use Only DO Not Attach Compendium DO Not Attach Compendium, Do Not Delete/merge, [facility] 05/14/2024 16:46:13 05/14/20 24 05/14/2024 influ isaak virus A + B + SARS- CoV-2 (COVI D19) Ag panel , rapid IA, upper respi rator y speci men Flu A negati ve Not Available In-Office Order Internal Use Only DO Not Attach Compendium DO Not Attach Compendium, Do Not Delete/merge, [id number] 05/14/2024 16:46:10 05/14/20 24 05/14/2024 influ isaak virus A + B + SARS- CoV-2 (COVI D19) Ag panel , rapid IA, upper respi rator y speci men Flu B negati ve Not Available In-Office Order Internal Use Only DO Not Attach Compendium DO Not Attach Compendium, Do Not Delete/merge, [id number] 05/14/2024 16:46:10 05/14/2005/14/2024 influ isaak virus A + B + SARS- CoV-2 (COVI D19) Ag panel , rapid IA, upper respi rator y speci men Rapid SARS CoV 2 Ag, QL IA, respiratory specimen negati ve Not Available In-Office Order Internal Use Only DO Not Attach Compendium DO Not Attach Compendium, Do Not Delete/merge, [id number] 05/14/2024 16:46:10 07/19/2007/20/2024 LIPID PANEL cholesterol, total 228 mg/dL 100-19 9 above high normal Not Available [address], [address], 07/20/2024 09:14:06 07/19/2007/20/2024 LIPID PANEL triglyceride s 104 mg/dL 0-149 Not Available [address], [address], 07/20/2024 09:14:06 07/19/2007/20/2024 LIPID PANEL HDL cholesterol 50 mg/dL >39 Not Available [address], [address], 07/20/2024 09:14:06 07/19/20 24 07/20/2024 LIPID PANEL VLDL cholesterol tin 19 mg/dL 5-40 Not Available [address], [address], 07/20/2024 09:14:06 07/19/2007/20/2024 LIPID PANEL LDL chol calc ([facility]) 159 mg/dL 0-99 above high normal Not Available [address], [address], 07/20/2024 09:14:06 07/19/2007/20/2024 COMP. METAB OLIC PANEL (14) glucose 144 mg/dL 70-99 above high normal Not Available [address], [address], 07/20/2024 09:14:08 07/19/20 24 07/20/2024 COMP. METAB OLIC PANEL (14) BUN 14 mg/dL 8-27 Not Available [address], [address], 07/20/2024 09:14:08 07/19/20 24 07/20/2024 COMP. METAB OLIC PANEL (14) creatinine 0.62 mg/dL 0.57-1 .00 Not Available [address], [address], 07/20/2024 09:14:08 07/19/20 24 07/20/2024 COMP. METAB OLIC PANEL (14) eGFR 98 mL/mi n/1.7 3 >59 Not Available [address], [address], 07/20/2024 09:14:08 07/19/20 24 07/20/2024 COMP. METAB OLIC PANEL (14) BUN/creatini ne ratio 23 12-28 Not Available [address], [address], 07/20/2024 09:14:08 07/19/20 24 07/20/2024 COMP. METAB OLIC PANEL (14) sodium 139 mmol/ L 134-14 4 Not Available [address], [address], 07/20/2024 09:14:08 07/19/20 24 07/20/2024 COMP. METAB OLIC PANEL (14) potassium 4.5 mmol/ L 3.5-5. 2 Not Available [address], [address], 07/20/2024 09:14:08 07/19/20 24 07/20/2024 COMP. METAB OLIC PANEL (14) chloride 102 mmol/ L 96-106 Not Available [address], [address], 07/20/2024 09:14:08 07/19/20 24 07/20/2024 COMP. METAB OLIC PANEL (14) carbon dioxide, total 23 mmol/ L 20-29 Not Available [address], [address], 07/20/2024 09:14:08 07/19/20 24 07/20/2024 COMP. METAB OLIC PANEL (14) calcium 9.4 mg/dL 8.7-10 .3 Not Available [address], [address], 07/20/2024 09:14:08 07/19/20 24 07/20/2024 COMP. METAB OLIC PANEL (14) protein, total 6.8 g/dL 6.0-8. 5 Not Available [address], [address], 07/20/2024 09:14:08 07/19/20 24 07/20/2024 COMP. METAB OLIC PANEL (14) albumin 4.1 g/dL 3.9-4. 9 Not Available [address], [address], 07/20/2024 09:14:08 07/19/20 24 07/20/2024 COMP. METAB OLIC PANEL (14) globulin, total 2.7 g/dL 1.5-4. 5 Not Available [address], [address], 07/20/2024 09:14:08 07/19/20 24 07/20/2024 COMP. METAB OLIC PANEL (14) bilirubin, total 0.5 mg/dL 0.0-1. 2 Not Available [address] [place], [address], 07/20/2024 09:14:08 07/19/20 24 07/20/2024 COMP. METAB OLIC PANEL (14) alkaline phosphatase 114 IU/L 44-121 Not Available [address], [address], 07/20/2024 09:14:08 07/19/20 24 07/20/2024 COMP. METAB OLIC PANEL (14) AST (SGOT) 17 IU/L 0-40 Not Available [address], [address], 07/20/2024 09:14:08 07/19/20 24 07/20/2024 COMP. METAB OLIC PANEL (14) ALT (SGPT) 18 IU/L 0-32 Not Available [address], [address], 07/20/2024 09:14:08 07/19/20 24 07/20/2024 CARDI OVASC ULAR REPOR T interpretati on Note Suppl diane seay t is avail able. Not Available [address], [address], 07/20/2024 09:14:09 07/19/20 24 07/20/2024 CARDI OVASC ULAR REPOR T pdf . Not Available [address], [address], 07/20/2024 09:14:09 07/19/20 24 07/20/2024 CBC, PLATE LET, NO DIFFE RENTI AL WBC 7.6 x10e3 /uL 3.4-10 .8 Eff ectiv e Decem juan 2023 [place] [id number] 5 WBC will be made* * non-o rdera ble as a stand -jon e order code. Not Available [address] [place], [address], 07/20/2024 09:14:09 07/19/2007/20/2024 CBC, PLATE LET, NO DIFFE RENTI AL RBC 4.88 x10e6 /uL 3.77-5 .28 Not Available [address], [address], 07/20/2024 09:14:09 07/19/2007/20/2024 CBC, PLATE LET, NO DIFFE RENTI AL hemoglobin 14.2 g/dL 11.1-1 5.9 Not Available [address], [address], 07/20/2024 09:14:09 07/19/2007/20/2024 CBC, PLATE LET, NO DIFFE RENTI AL hematocrit 42.5 % 34.0-4 6.6 Not Available [address], [address], 07/20/2024 09:14:09 07/19/2007/20/2024 CBC, PLATE LET, NO DIFFE RENTI AL MCV 87 fL 79-97 Not Available [address], [address], 07/20/2024 09:14:09 07/19/2007/20/2024 CBC, PLATE LET, NO DIFFE RENTI AL MCH 29.1 pg 26.6-3 3.0 Not Available [address], [address], 07/20/2024 09:14:09 07/19/2007/20/2024 CBC, PLATE LET, NO DIFFE RENTI AL MCHC 33.4 g/dL 31.5-3 5.7 Not Available [address], [address], 07/20/2024 09:14:09 07/19/20 24 07/20/2024 CBC, PLATE LET, NO DIFFE JOSH AL RDW 12.9 % 11.7-[address] [facility] [address] [place], [address], 07/20/2024 09:14:09 07/19/20 24 07/20/2024 CBC, PLATE LET, NO DIFFE RENTI AL platelets 247 x10e3 /uL 150-45 0 Not Available [address], [address], 07/20/2024 09:14:09 07/19/20 24 07/19/2024 HbA1c (hemo globi n A1c), blood HbA1c 6.4 Not Available In-Office Order Internal Use Only DO Not Attach Compendium DO Not Attach Compendium, Do Not Delete/merge, 07/18/2024 16:36:07 10/11/1910/11/2024 rapid strep group A, throa t Strep negati ve Not Available In-Office Order Internal Use Only DO Not Attach Compendium DO Not Attach Compendium, Do Not Delete/merge, 10/11/2024 12:19:27 10/11/1910/11/2024 influ isaak virus A + B + SARS- CoV-2 (COVI D19) Ag panel , rapid IA, upper respi rator y speci men Flu A negati ve Not Available In-Office Order Internal Use Only DO Not Attach Compendium DO Not Attach Compendium, Do Not Delete/merge, 10/11/2024 12:19:21 10/11/19 25 10/11/2024 influ isaak virus A + B + SARS- CoV-2 (COVI D19) Ag panel , rapid IA, upper respi rator y speci men Flu B positi ve Not Available In-Office Order Internal Use Only DO Not Attach Compendium DO Not Attach Compendium, Do Not Delete/merge, 10/11/2024 12:19:21 10/11/1910/11/2024 influ isaak virus A + B + SARS- CoV-2 (COVI D19) Ag panel , rapid IA, upper respi rator y speci men Rapid SARS CoV 2 Ag, QL IA, respiratory specimen positi ve Not Available In-Office Order Internal Use Only DO Not Attach Compendium DO Not Attach Compendium, Do Not Delete/merge, [id number] 10/11/2024 12:19:21 11/14/19 25 11/13/2024 COLOG UARD cologuard result reportable NEGATI VE negati ve normal NEGAT JUSTIN TEST RESUL T. A negat justin Colog uard resul t indic ates a low likel ihood that a color ectal cance r (CRC) or advan darline adeno ma (amena omato us polyp s with more advan darline pre-m align ant featu res) is prese nt. The chanc e that a perso n with a negat justin Colog uard test has a color ectal cance r is less than 1 in 1500 (nega tive predi ctive value >99.9 %) or has an advan darline adeno ma is less than 5.3% (nega tive predi ctive value 94.7% ). These data are based on a prosp ectiv e cross -sect ional study of 10,00 0 indiv idual s at [facility] risk for color ectal cance r who were scree bruce with both Colog uard and colon oscop y. (Collette baker T. et al, N Engl J Med 2014; 370(1 4):12 86-12 97) The mike l value (refe rence range ) for this assay is negat justin. COLOG UARD RE-SC REENI NG RECOM MENDA TION: Perio dic color ectal cance r scree bk is an impor tant part of preve ntive healt hcare for asymp tomat ic indiv idual s at [facility] risk for color ectal cance r. Follo wing a negat justin Colog uard resul t, the Ameri can Cance r Socie ty and U.S. Multi -Soci ety Task Force scree bk guide lines recom mend a Colog uard re-sc yasmeen flores inter ti of 3 years . Refer ences : Javad can Cance r Socie ty Guide line for Color ectal Cance r Scree bk: https ://wesley alvarado cer.o rg/ca ncer/ colon -rect al-ca ncer/ detec tion- diagn osis- stagi ng/ac s-rec ommen datio ns.ht ml.; Amari DEL RIO, Thierry MACHADO, Tony ChowdhuryK, Color ectal Cance r Scree bk: Recom menda tions for Physi cians and Patie nts from the U.S. Multi -Soci ety Task Force on Color ectal Cance r Scree bk , Sherrie gamaog y 2017; 112:1 016-1 030. TEST DESCR IPTIO N: [place] site algor ithmi c jia sis of stool DNA-b ioantonio kers with hemog lobin immun oassa y. Quant itati ve value s of indiv idual bioma rkers are not repor table and are not assoc iated with indiv idual bioma rker resul t refer ence range s. Colog uard is inten ded for color ectal cance r scree bk of adult s of eithe r sex, 45 years or older , who are at [facility] for color ectal cance r (CRC) . Colog uard has been appro jose luis for use by the U.S. FDA. The perfo rmanc e of Colog uard was estab lishe d in a cross secti onal study of [facility] adult s aged 50-84 . Colog uard perfo rmanc e in patie nts ages 45 to 49 years was estim ated by [facility] jia sis of near- age group s. Colon oscop ies perfo rmed for a posit justin trey t may find as the most clini malika signi ronald rogel n: color ectal cance r [4.0% ], advan darline adeno ma (incl uding sessi le tatyana jasmin polyp s great er than or equal to 1cm diame ter) [20%] or non- advan darline adeno ma [31%] ; or no color ectal neopl luz [45%] . These estim ates are deriv ed from a prosp ectiv e cross -sect ional scree bk study of , 0 indiv idual s at [facility] risk for color ectal cance r who were scree bruce with both Colog uard and colon oscop y. (Collette Chris et al, N Engl J Med 2014; 370(1 4):12 86-12 97.) Colog uard may produ ce a false negat justin or false posit justin resul t (no color ectal cance r or preca ncero us polyp prese nt at colon oscop y follo w up). A negat justin Colog uard test resul t does not guara ntee the absen ce of CRC or advan darline adeno ma (pre- cance r). The curre nt Colog uard scree bk inter ti is every 3 years . (Amer ican Cance r Socie ty and U.S. Multi -Soci ety Task Force ). Colog uard perfo rmanc e data in a 0 patie nt pivot al study using colon oscop y as the refer ence metho d can be acces sed at the follo wing locat ion: www.e xactl abs.c om/re ace . Addit ional descr iptio n of the Colog uard test proce ss, warni ngs and preca ution s can be found at www.c teresa miked.c om. Not Available [facility] [address], [place], [address], 11/17/2024 13:44:56 12/17/19 24 12/17/2023 XR, chest No observ ation [facility] ed. [facility] [address], [place], [address], 12/18/2023 09:01:31 04/08/20 24 04/06/2024 MAMMO , scree bk, digit al, bilat eral No observ ation record ed. YURIY Short [address] , [place], [address], 04/08/2024 13:18:52 05/31/20 24 05/29/2024 MAMMO , diagn ostic , digit al, unila teral No observ ation record ed. [address] , [place], [address], 05/31/2024 17:21:47 05/31/20 24 05/29/2024 MAMMO , diagn ostic , digit al, unila teral No observ ation record ed. [address] [place], [address], 05/31/2024 17:21:48 04/24/20 25 04/24/2025 US, ivet laughlin, bilat eral No observ ation record ed. [address] [place], [address], 04/29/2025 19:27:01 04/24/20 25 04/24/2025 MAMMO , diagn ostic , digit al, bilat eral No observ ation record ed. [address] [place], [address], 04/29/2025 19:27:01 Result Notes None recorded. Problems Name Problem SNOMED Code Status Onset Date Resolution Date Notes Provider Name and Address Organization Details Recorded Time Upper respiratory infection 20640295 Active Pratibha [place], [place] [facility] 16:25:47 Left sided abdominal pain 948866561 Active Pratibha [place] [facility] 16:25:47 Dysphagia 63039156 Active Pratibha [place], [place] [facility] 16:25:47 Hypersomnia with sleep apnea 51661399 Active Pratibha [place] [facility] 16:25:47 Acute sinusitis 57199422 Active Dinh Queen PA-C Attn: Марина g,[address] [place], [address], [place] [facility] 6 17:01:20 Acute bronchitis 32492153 Active 2020 Dinh Queen PA-C Attn: Марина dover,[address] , [place], [address], [place] [facility] 15:47:22 Problem Notes None recorded. Procedures Surgical History Date Name Laterality Status Provider Name and Address Organization Details Recorded Time 05/29/20 24 Date of Last Mammogram completed Twyla Veronica [place] [facility] 09/26/2024 14:21:02 11/18/19 18 Date of Last Pap Smear completed Ny Quinn [place] [facility] 11/19/2018 08:58:56 Appendectomy completed Vickie [place] [facility] 07/22/2014 16:20:39 Hernia Repair completed Vickie [place] [facility] 07/22/2014 16:20:39 Caesarean Section completed Vickie [place] [facility] 07/22/2014 16:20:39 Cholecystectomy completed Vickie [place] [facility] 07/22/2014 16:20:39 Imaging Results None recorded. Procedure Notes None recorded. Medical Equipment None Reported. Allergies Allergen ID Allergen Name Allergen Category Reaction Reaction Severity Criticality Documentation Date Start Date Code Code System Note Provider Name and Address Organization Details Recorded Time 3168 codeine medicatio n Not available Not available Not available 07/22/2014 2670 RxNorm Ny miner [place] null, [place] [facility] 7 16:09:36 Medications Name Sig Start Date Stop Date Status Note LastModified by Organization Details LastModified Time cyclobenzap rine 10 mg tablet 10/11 completed Not Available Not Available Not Available budesonide 32 mcg/actuati on nasal spray [place] 1 spray every day by intranasa l route for 30 days. 10/08 completed Not Available Not Available Not Available cetirizine 10 mg tablet TAKE ONE TABLET BY MOUTH EVERY DAY NEEDED 2024 active Not Available Not Available Not Avai lable azithromyci n 250 mg tablet 11/16 completed Not Available Not Available Not Available ibuprofen 800 mg tablet 09/26 completed Not Available Not Available Not Available ofloxacin 0.3 % eye drops 03/30 completed Not Available Not Available Not Available benzonatate 200 mg capsule Take 1 capsule 3 times a day by oral route as needed for 10 days. 10/08 completed Not Available Not Available Not Available ranitidine 300 mg tablet 1 qhs 10/11 completed Not Available Not Available Not Available hydrocodone 5 mg-acetamin ophen 325 mg tablet TAKE 1 TABLET BY MOUTH EVERY 6 HOURS NEEDED FOR MODERATE TO SEVERE PAIN 11/16 completed Not Available Not Available Not Available prednisone 20 mg tablet TAKE 1 AND 1/2 TABLETS BY MOUTH DAILY FOR 3 DAYS 03/31 completed Not Available Not Available Not Available metronidazo le 500 mg tablet Take 1 tablet every 8 hours by oral route for 10 days. 11/16 completed Not Available Not Available Not Available Tamiflu 75 mg capsule Take 1 capsule twice a day by oral route for 5 days. 2024 active Not Available Not Available Not Avai lable butalbital- acetaminoph en-caffeine 50 mg-325 mg-40 mg tablet TAKE 1 TABLET EVERY 4 HOURS BY ORAL ROUTE NEEDED FOR 30 DAYS. 02/27 completed Not Available Not Available Not Available amoxicillin 500 mg tablet TAKE 1 TABLET BY MOUTH THREE TIMES DAILY FOR 10 DAYS 11/16 completed Not Available Not Available Not Available ketorolac 0.5 % eye drops 03/30 completed Not Available Not Available Not Available amoxicillin 875 mg tablet Take 1 tablet every 12 hours by oral route for 10 days. 2024 active Not Available Not Available Not Avai lable prednisolon e acetate 1 % eye drops,suspe nsion 03/30 completed Not Available Not Available Not Available ciprofloxac in 0.3 % eye drops INSTILL 1 DROP INTO AFFECTED EYE(S) BY OPHTHALMI C ROUTE EVERY 2 HOURSWHIL E AWAKE FOR 2 DAYS THEN 1 DROP EVERY 4 HRS WHILE AWAKE FOR 5 DAYS 09/05 completed Not Available Not Available Not Available benzonatate 100 mg capsule Take 1 capsule 3 times a day by oral route as needed for 14 days. 07/19 completed Not Available Not Available Not Available hydrocodone 7.5 mg-acetamin ophen 325 mg tablet 10/11 completed Not Available Not Available Not Available cephalexin 500 mg capsule TAKE 1 CAPSULE BY MOUTH FOUR TIMES DAILY FOR 7 DAYS 07/19 completed Not Available Not Available Not Available Cipro 500 mg tablet Take 1 tablet every 12 hours by oral route for 10 days. 03/30 completed Not Available Not Available Not Available Norvasc 5 mg tablet Take 1 tablet every day by oral route. 10/11 completed Not Available Not Available Not Available ranitidine 300 mg capsule Take 1 capsule(s ) every day by oral route at bedtime. 10/11 completed Not Available Not Available Not Available prednisone 50 mg tablet TAKE 1 TABLET BY MOUTH DAILY 05/14 completed Not Available Not Available Not Available polymyxin B sulfate 10,000 unit-trimet hoprim 1 mg/mL eye drops INSTILL 1 DROP IN RIGHT EYE FOUR TIMES DAILY FOR 7 DAYS 07/19 completed Not Available Not Available Not Available codeine 10 mg-guaifene sin 100 mg/5 mL oral liquid Take 10 mL every day by oral route at bedtime for 30 days. 10/11 completed Not Available Not Available Not Available Levaquin 500 mg tablet Take 1 tablet every 24 hours by oral route for 5 days. 10/11 completed Not Available Not Available Not Available lisinopril 10 mg-hydrochl orothiazide 12.5 mg tablet TAKE 1 TABLET BY MOUTH EVERY DAY 2024 active Not Available Not Available Not Avai lable ibuprofen 600 mg tablet 10/11 completed Not Available Not Available Not Available methylpredn isolone 4 mg tablets in a dose pack Take 1 dose pk by oral route as directed. 11/16 completed Not Available Not Available Not Available albuterol sulfate HFA 90 mcg/actuati on aerosol inhaler INHALE 2 PUFFS INTO LUNGS EVERY 4 HOURS. NEEDS APPT active Not Available Not Available No t Available fluticasone propionate 50 mcg/actuati on nasal spray,suspe nsion USE 1 SPRAY IN EACH NOSTRIL TWICE DAILY active Not Available Not Available No t Available amoxicillin 875 mg-potassiu m clavulanate 125 mg tablet TAKE 1 TABLET BY MOUTH TWICE DAILY FOR 10 DAYS 11/16 completed Not Available Not Available Not Available neomycin-po lymyxin-hyd rocort 3.5 mg-10,000 unit/mL-1 % ear drops,susp INSTILL 4 DROPS INTO AFFECTED EAR(S) BY OTIC ROUTE 3 TIMES PER DAY 10/08 completed Not Available Not Available Not Available azithromyci n 500 mg tablet Take 1 tablet every day by oral route for 3 days. 03/31 completed Not Available Not Available Not Available Systane (PF) 0.4 %-0.3 % eye drops in a dropperette 1-2 drops 4 times daily prn 03/30 completed Not Available Not Available Not Available cetirizine 10 mg capsule Take 1 capsule every day by oral route as needed for 30 days. 2023 active Not Available Not Available Not Avai lable Paxlovid 300 mg (150 mg x 2)-100 mg tablets in a dose pack TK 2 NIRMATREL VIR TS AND 1 RITONAVIR T TOGETHER PO BID FOR 5 DAYS 07/19 completed Not Available Not Available Not Available Vitals Date Recorded Body height Body mass index (BMI) Body weight Oxygen saturation Heart rate Systolic And Diastolic Provider Name and Address Organization Details Last Updated DateTime 5 165.1 cm 48.3 kg/m2 903363. 79 g 95 % 85 /min 120/78 mm[Hg] Twyla Veronica MA [facility] 5 14:23:53 Date Recorded Body height Body mass index (BMI) Body weight Oxygen saturation Heart rate Respiratory rate Body temperature Systolic And Diastolic Provider Name and Address Organization Details Last Updated DateTime 5 165.1 cm 48.6 kg/m2 243541. 69 g 97 % 82 /min 16 /min 98.7 [degF] 130/84 mm[Hg] Janet Marcus MA [facility] 5 12:17:27 Date Recorded Body height Body mass index (BMI) Body weight Oxygen saturation Heart rate Systolic And Diastolic Provider Name and Address Organization Details Last Updated DateTime 4 165.1 cm 45.8 kg/m2 973262. 9 g 95 % 96 /min 130/80 mm[Hg] Twyla Veronica MA [facility] 4 15:28:08 Date Recorded Body height Body mass index (BMI) Body weight Oxygen saturation Heart rate Respiratory rate Body temperature Systolic And Diastolic Provider Name and Address Organization Details Last Updated DateTime 4 165.1 cm 46.4 kg/m2 603940. 55 g 95 % 93 /min 16 /min 98.8 [degF] 122/81 mm[Hg] Janet Marcus MA [facility] 4 16:20:23 Date Recorded Body height Oxygen saturation Heart rate Systolic And Diastolic Provider Name and Address Organization Details Last Updated DateTime 07/19/2024 165.1 cm 95 % 67 /min 115/71 mm[Hg] Silvana Vuong MA [facility] 07/19/2024 10:30:26 Social History Question Answer Notes LastModified by Organizat ion Details LastModified Time Tobacco Smoking Status Never Smoker Vickie Landry MA [facility] 07/22/2014 16:20:39 Are You Blind Or Do You Have Difficulty Seeing? No Information n ot available 06/16/2021 What Is Your Level Of Caffeine Consumption? None Information not available 06/16/2021 How Much Tobacco Do You Chew? None Information not available 03/30/2020 In The 14 Days Before Symptom Onset, Have You Had Close Contact With A Laboratory-confirm ed COVID-19 While That Case Was Ill? No Information n ot available 06/16/2021 In The 14 Days Before Symptom Onset, Have You Had Close Contact With A Person Who Is Under Investigation For COVID-19 While That Person Was Ill? No Information not available 06/16/2021 Have You Been To An Area Known To Be High Risk For COVID-19? No Information not available 06/16/2021 Are You Deaf Or Do You Have Serious Difficulty Hearing? No Information not available 06/16/2021 What Type Of Diet Are You Following? REGULAR Information n ot available 10/18/2021 Which Illicit Or Recreational Drugs Have You Used? None Information not available 03/30/2020 Are There Any Guns Present In Your Home? No Information not available 06/16/2021 Live Alone Or With Others? With Others Information not available 03/30/2020 What Was The Date Of Your Most Recent Tobacco Screening? 10/11/2024 Information not available 10/11/2024 What Is Your Relationship Status? Information not available 06/16/2021 Do You Use Your Seat Belt Or Car Seat Routinely? Yes Information not available 06/16/2021 Are You Sexually Active? No [email or web address] Information not available 02/27/2023 Do You Have Smoke And Carbon Monoxide Detectors In Your Home? Yes Information not available 06/16/2021 Are You Passively Exposed To Smoke? No Information no t available 06/16/2021 How Much Tobacco Do You Smoke? No Information not available 02/11/2019 Do You Use Sunscreen Routinely? No Information not available 06/16/2021 Has Tobacco Cessation Counseling Been Provided? No [email or web address] Information not available 01/15/2019 On What Date Was Tobacco Cessation Counseling Provided? 10/11/2024 Information not available 10/11/2024 How Many Years Have You Smoked Tobacco? 0 Information not available 02/11/2019 Sex: Female Functional Status Question Answer Note LastModified by Organizat ion Details LastModified Time Do you use any illicit or recreational drugs? No Information not available 06/16/2021 Do you or have you ever used any other forms of tobacco or nicotine? No Information not available 10/18/2021 What is your level of alcohol consumption? None Information not available 02/11/2019 Do you or have you ever used smokeless tobacco? Never used smokeless tobacco Information not available 03/30/2020 Are you currently employed? Yes Information not available 03/30/2020 Are you able to care for yourself independently? Yes Information not available 03/30/2020 What is your occupation? [employer] Ret[employer] Information not available 05/14/2024 Do you or have you ever used e-cigarettes or vape? Never used electronic cigarettes Information not available 03/30/2020 What is your exercise level? None Information not available 05/14/2024 Mental Status Question Answer Note LastModified by Organization D etails LastModified Time Do you feel stressed (tense, restless, nervous, or anxious, or unable to sleep at night)? [id number] Information not available 06/16/2021 Family History Relationship Description Onset Age of this Age Resolved Age Notes LastModified by Organization Details LastModified Time Mother History of hypertension [email or web address] Not available 05/2016 15:41:33 Father History of hypertension [email or web address] Not available 05/2016 15:41:33 Father History of migraine [email or web address] Not available 2015 15:41:33 Brother History of hypertension [email or web address] Not available 05/2016 15:41:33 Brother Hyperlipidem ia [email or web address] Not available 2015 15:41:33 Notes:no breast ca hx Medical History Condition Response Coronary Artery Disease N Other N High Blood Pressure Y Atrial Fibrillation N Kidney or Bladder Problems N Thyroid Problems N Depression N COPD N Blood Clots N GI Problems N Skin Problems N Eating Disorder N Anemia N Heart Attack ([place]) N Anxiety Disorder N Diabetes N Muscle, Joint, or Bone Problems N Seizures/Epilepsy N Acid Reflux (GERD) Y Cancer N Stroke N Asthma N Allergies Y ADHD N Substance Abuse N High Cholesterol N Hepatitis N Liver Disease N Headaches N Schizophrenia N Osteoporosis N Heart Failure N Gynecological History Statement/Question Response Abnormal Pap N If Post Menopausal, Age at Menopause 47 Date of Last Pap Smear 11/17/2017 Date of Last Mammogram 05/29/2024 Date of LMP Obstetrics History GPAL:G 2 P 2 0 0 0 Type Value Full Term 2 Total 2 Immunizations Vaccine Type Date Status Note Provider Nam e and Address Organization Details Recorded Time Influenza, split virus, quadrivalent, preservative 7 completed Not Available [facility] 09/14/2019 02:41:32 Influenza, split virus, quadrivalent, preservative 8 completed Not Available [facility] 09/14/2019 02:46:42 Past Encounters Encounter ID Performer Location Encounter Start Date Encounter Closed Date Diagnosis/Indication Diagnosis SNOMED-CT Code Diagnosis ICD10 Code Diagnosis IMO Codes Diagnosis Note [id number] Dinh Queen PA-C [facility] [address] [place] [address] 07/22/2014 16:00:45 07/28/2014 17:52:57 Upper respiratory infection 72688066 [id number] Dinh Queen PA-C [facility] [address] [place] [address] 10/02/2014 15:18:01 10/02/2014 15:55:37 Upper respiratory infection 01705509 [id number] Antolin Allred MD [facility] [address] [place] [address] 06/02/2015 16:16:03 06/02/2015 17:08:00 Left sided abdominal pain 507944951 R10.9 Dysphagia 60176548 R13.1 0 Hypersomni a with sleep apnea 38932050 G47.30 [id number] Antolin Allred MD [facility] [address] [place] [address] 09/03/2015 16:19:35 09/03/2015 17:04:50 Acute sinusitis 53651261 J01.90 [id number] MD Han Coughlin [facility] ([facility] [address] [address] 11/14/2016 15:52:59 11/15/2016 09:22:16 Screening for malignant neoplasm of colon 943029832 Z12.11 Gynecologi c examination 74908560 Z01.419 Screening for malignant neoplasm of breast 882615769 Z12.31 [id number] Antolin Allred MD [facility] [address] [place] [address] 06/05/2017 13:58:37 06/05/2017 16:15:24 Administration of influenza vaccine 62548453 Z23 [id number] Antolin Allred MD [facility] [address] [place] [address] 10/11/2017 17:50:38 10/11/2017 18:47:07 Essential hypertension 63016824 I10 [id number] Dinh Queen PA-C [facility] [address] [place] [address] 11/09/2017 15:43:29 11/10/2017 09:59:14 Otitis externa of right ear 3359295036 659119 H60.311 Morbid obesity 336420560 E66.01 [id number] MD [facility] ([facility] [address]) [address] [facility] [address] [place] [address] 11/17/2017 15:31:45 11/21/2017 10:55:43 Body mass index 40+ - severely obese 940586461 Z68.42 Screening for malignant neoplasm of colon 976450225 Z12.11 Gynecologi c examination 00405008 Z01.419 Screening for malignant neoplasm of breast 557877913 Z12.31 [id number] YESSICA Vera [facility] [address] [place] [address] 06/19/2018 17:52:00 06/19/2018 19:08:32 Administration of influenza vaccine 46074118 Z23 Essential hypertension 53420052 I10 Acute sinusitis 29561270 J01.90 Obstructiv e sleep apnea syndrome 63873568 G47.33 Unilateral headache 1030 37508 R51 [id number] YESSICA Vera [facility] [address] [place] [address] 09/05/2018 15:06:54 09/05/2018 16:37:29 Ankle pain 169562484 M25.571 Obstructiv e sleep apnea syndrome 68152244 G47.33 [id number] Dinh Queen PA-C [facility] [address] [place] [address] 01/15/2019 13:52:56 01/15/2019 15:05:42 Screening for malignant neoplasm of colon 686162412 Z12.11 Cortical s enile cataract 06089865 H25.011 Essential hypertension 83633163 I10 [id number] Dinh Queen PA-C [facility] [address] [place] [address] 02/11/2019 10:50:03 02/12/2019 12:13:16 Hypersomnia with sleep apnea 04661559 G47.30 [id number] YESSICA Vera [facility] [address] [place] [address] 05/21/2019 10:55:51 05/21/2019 13:43:18 Left upper quadrant pain 590132150 R10.12 [id number] YESSICA Vera [address] [place] [address] 03/30/2020 10:37:28 03/31/2020 07:54:41 Upper respiratory infection 34971814 J00 [id number] RIGOBERTO Salomon consuelo [address] [place] [address] 03/31/2020 09:09:25 04/01/2020 07:57:35 Suspected COVID-19 107844106 Z03.818 D/w pt the current pandemic of COVID-19 and call for social isolation in order to blunt the curve and minimize risk and spread. Encouraged patient and family to take restrictio ns seriously. They have verbalized understand ing of such. Viral syndrome 096495133 B34.9 Coronavirus infection 18 5065837 B34.2 [id number] Dinh Queen PA-C [facility] [address] [place] [address] 06/16/2021 14:57:15 06/16/2021 15:58:52 Acute sinusitis 52779561 J01.01 Essential hypertension 58358691 I10 Acute bron chitis with bronchospasm 33432051 J20.9 [id number] Dinh Queen PA-C [facility] [address] [place] [address] 10/08/2021 09:35:43 10/08/2021 13:41:30 Acute sinusitis 47010183 J01.01 [id number] Antolin Allred MD [facility] [address] [place] [address] 10/18/2021 16:40:54 10/18/2021 17:28:36 Hypersomnia with sleep apnea 81040247 G47.30 Body mass index 40+ - severely obese 811060944 Z68.42 Obstructiv e sleep apnea syndrome 92938512 G47.33 Screening for malignant neoplasm of colon 354722903 Z12.11 [id number] Dinh Queen PA-C [facility] [address] [place] [address] 09/01/2022 16:24:01 09/01/2022 17:05:08 Essential hypertension 75351567 I10 Acute bron chitis with bronchospasm 04459104 J20.9 [id number] Antolin Allred MD [facility] [address] [place] [address] 02/27/2023 14:40:56 03/01/2023 10:32:59 Upper respiratory infection 73439940 J00 Persistent cough 9521135 02 R05.3 Obstructiv e sleep apnea syndrome 96098615 G47.33 Overweight 651437856 E66 .3 [id number] Antolin Allred MD [facility] [address] [place] [address] 03/31/2023 11:51:20 04/03/2023 09:22:58 Temporomandibular mxsay-uikm-hlbbxkauvc n syndrome 285491216 M26.621 Obstructiv e sleep apnea syndrome 19949347 G47.33 Overweight 345256477 E66 .3 Essential hypertension 46457244 I10 [id number] Dinh Queen PA-C [facility] [address] [place] [address] 11/17/2023 15:04:38 11/23/2023 23:25:31 Upper respiratory infection 12905149 J00 COVID-19 822548737 U07.1 Mixed anxi ety and depressive disorder 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 F41.8 does feel that the symptoms are situationa l to illness and doesnt want treatment Overweight 057941467 E66 .3 Acute bron chitis with bronchospasm 10618521 J20.9 Essential hypertension 21218282 I10 [id number] Antolin Allred MD [facility] [address] [place] [address] 05/14/2024 16:00:29 05/16/2024 08:46:08 Cough 91826504 R05.9 Influenza B virus present 753274848 J10.1 -Patient tested positive for flu B.-Patient agreeable to symptom management with tessalon perles TID PRN and fluticason e PRN.-Patie nt declined tamiflu therapy-Pa tient to return to clinic if symptoms worsen or do not improve.-E R precaution s advised.-C are instructio ns provided. COVID-19 907182478 U07.1 -Patient tested positive for covid.-Pat ient agreeable to treatment with paxlovid dose pack. PROCESS IMPROVEMENT CONSULTANT discussed potential side effects and benefits of medication with the patient.-P atient to return to clinic if symptoms worsen or do not improve.-E R precaution s advised.-C are instructio ns provided. HIV screen ing declined 5081512250 84771 Z53.20 [id number] Antolin Allred MD [facility] [address] [place] [address] 07/19/2024 10:16:25 07/22/2024 12:19:08 Prediabetes 749396369 R73.03 Mixed hyperlipidemia 267 481966 E78.2 Essential hypertension 66027425 I10 Overweight 601471988 E66 .3 [id number] Antolin Allred MD [facility] [address] [place] [address] 09/26/2024 13:59:25 10/01/2024 09:58:39 Acute left otitis media 872025546 H65.02 Overweight 909717527 E66 .3 [id number] Antolin Allred MD [facility] [address] [place] [address] 10/11/2024 11:57:30 10/14/2024 15:21:35 Sore throat 916206077 J02.8 Influenza caused by Influenza B virus 92215364 J10.1 COVID-19 415633036 U07.1 Morbid obesity 435782202 E66.01 Health Concerns Section Related Observation LastModified by Organization Detai ls LastModified Time None Recorded Concern Status LastModified by Organization Details LastModified Time None Recorded Advance Directives Directive None Recorded Payers Insurance Date Sequence Insurance Name Policy Number Policy Escalera Covered Member ID Escalera Member ID Guarantor Name 01/29/2025 3 [place] WHEN MEDICARE OR MEDICARE REPLACEMENT PRIMARY) Shana E [place] [id number] Shana E [place] 11/29/2024 [place] [facility] Shana E [place] [id number] Shana E [place] 05/14/2024 2 [place] Shana E [place] [id number] Shana E [place] 05/14/2024 1 [facility] - DOS PRIOR TO 2021 (MEDICAID REPLACEMENT - HMO) Shana Ber[place] [id number] Shana E [place] 05/14/2024 1 [place] [employer] Shanadeirda Rubilin [id number] Shana E [place] 05/14/2024 1 [facility] - DOS PRIOR TO 2021 (MEDICAID REPLACEMENT - HMO) Shana [place] [id number] Shana E [place] 01/13/2025 2 [place] [id number] Shana E [place] [id number] Shana E [place] 05/22/2019 1 [place] [id number] Fortino Rubilin [id number] Shana E [place] 01/13/2025 1 [place] Shana E [place] [id number] Shana E [place] Notes Date Note Type Note Provider Name and Address Organization Details Recorded Time 11/17/2023 text/html ROS as noted in the HPI sinus and chest/cough symptoms since monday..no fever... Dinh Queen PA-C Attn: [address] [place], [address], [facility] 11/17/2023 16:11:47 05/14/2024 text/html Patient presents to the clinic with acute complaint of a cough. Patient is established with Rick BAILEY for primary care. Patient's past medical history includes hypertension, GERD, and allergies. Cough-Patient reports her symptoms started last night.-Patient reports experiencing symptoms of ear pain, sore throat, facial pain, chills, cough, sinus congestion, body aches, and increased fatigue-Patient denies experiencing symptoms of fever, nausea, vomiting, or diarrhea-Patient reports she took mucinex D this morning to help with symptoms. ARELIS COELLO Attn: [address] [place], [address], [facility] 05/15/2024 14:41:03 07/19/2024 text/html ROS as noted in the HPI visit regarding cpap...uses every night as directed. Patient reports is working well and her life is greatly improved through its use. Dinh Queen PA-C Attn: [address] [facility], [place], [address], [facility] 07/19/2024 10:49:11 09/26/2024 text/html ROS as noted in the HPI ear ache left side..started yesterday.. Dinh Queen PA-C Attn: [address] [facility], [place], [address], [facility] 09/26/2024 14:38:46 10/11/2024 text/html ROS as noted in the HPI uri symptoms for a few days...throat etc Dinh Queen PA-C Attn: [address] [facility], [place], [address], [facility] 10/11/2024 12:37:15 OBGyn Episode No OBEpisode recorded.
[2025-07-27 19:42] VITALS: BP 173/73; PULSE 121; RESP 20; TEMP 38.3; O2SAT 98
--- NOTE | 2025-07-27 20:01 | ED.EAR ---
HPI - Ear Problem General Chief complaint: Ear Stated complaint: ear pain/fever Time Seen by Provider: 07/27/25 20:01 Source: patient and RN notes reviewed Mode of arrival: ambulatory Limitations: no limitations History of Present Illness HPI Narrative: 65-year-old female presents Express Care complaining of Bilateral ear pain since morning, developed fever this evening, reports a sore throat as well. Patient denies any cough, any other upper respiratory symptoms, chest pain, difficulty breathing, wheezing, shortness of breath, body aches, chills, nausea, vomiting, diarrhea, or any other symptoms. Patient has a History of hypertension. Patient took Motrin of the fever. Related Data Home Medications ?Medication ?Instructions ?Recorded ?Confirmed ?Last Taken ?Type lisinopril 10 1 tablet PO DAILY 12/17/23 05/27/24 Unknown History mg-hydrochlorothiazide 12.5 mg tablet albuterol sulfate 90 mcg/actuation inhalation 07/27/25 Unknown History aerosol inhaler Allergies Allergy/AdvReac Type Severity Reaction Status Date / Time No Known Allergies Allergy Unknown Verified 07/27/25 19:42 Review of Systems Review of Systems: CONSTITUTIONAL: Positive for fevers. Negative for body aches, Chills, or sweats. EYES: Denies visual changes, redness, or discharge. ENT: Denies rhinorrhea, congestion. Positive for sore throat and otalgia. CARDIOVASCULAR: Denies chest pain, palpitations, or edema. RESPIRATORY: Denies cough or dyspnea. GASTROINTESTINAL: Denies abdominal pain, nausea, vomiting, or diarrhea. GENITOURINARY: Denies dysuria or hematuria. SKIN: Denies rash or itching. MUSCULOSKELETAL: Denies back pain, joint pain, or myalgia. NEUROLOGIC: Denies headache, numbness, or weakness. PSYCHIATRIC: Denies anxiety or depression. All other systems reviewed are negative, except as documented in HPI. [facility] Past Medical History Medical History Seasonal allergies History of sinus problem GERD (gastroesophageal reflux disease) Hypertension Surgical History Surgical History H/O inguinal hernia repair H/O section x2 History of cholecystectomy History of appendectomy Family History Family History Mother Family history non-contributory Social History Social History Substance use: never Gender identity (if verbalized by the patient): Female Comments At the time of my signature, I reviewed and agree with the nursing past medical, surgical, social, and family history. There is no relevant family history pertinent to the patient complaint. Exam Narrative: GENERAL: This is a well-nourished, well-developed adult, in no apparent distress. They are non ill-appearing, nontoxic appearing. HEAD: normocephalic, atraumatic. EYES: Sclera clear/white. Conjunctiva normal. Vision is grossly intact. Extraocular movements intact EARS: External ears normal, auditory canals clear and without drainage, right TM normal without perforation, left TM erythematous non bulging, without suppuration. No perforation. Hearing grossly intact. NOSE: External nose normal with no obvious nasal discharge, nasal turbinates erythema without swelling, no rhinorrhea. THROAT: Mucous membranes moist, posterior pharynx erythematous.. Uvula midline. Postnasal drip present NECK: Neck supple, non-tender without lymphadenopathy, masses or thyromegaly. CARDIOVASCULAR: Regular rate and rhythm without murmurs, gallops, or rubs. RESPIRATORY: Clear to auscultation. Breath sounds equal bilaterally. No wheezes, rales, or rhonchi. SKIN: warm, Dry, intact with no suspicious lesions or rash, good texture and turgor. NEURO: awake, alert, and oriented to person, place and time. There were no obvious focal neurologic abnormalities. EXTREMITIES: No joint tenderness, effusion, or edema noted. BACK: Nontender without deformity. Course Course Emergency Course: Portions of this record may have been created with voice recognition software Level of Care: Express Care Visit Vital Signs Vital signs: Vital Signs Temperature 101.0 F H 07/27/25 19:42 Pulse Rate 121 H 07/27/25 19:42 Respiratory Rate 20 07/27/25 19:42 Blood Pressure 173/73 H 07/27/25 19:42 Pulse Oximetry 98 07/27/25 19:42 Oxygen Delivery Room Air 07/27/25 19:42 Temperature 101.0 F H 07/27/25 19:42 Pulse Rate 121 H 07/27/25 19:42 Respiratory Rate 20 07/27/25 19:42 Blood Pressure 173/73 H 07/27/25 19:42 Pulse Oximetry 98 07/27/25 19:42 Oxygen Delivery Room Air 07/27/25 19:42 Reviewed Medical Decision Making MDM Narrative Medical decision making narrative: Appears patient has left-sided otitis media. Will treat with amoxicillin. Discussed physical exam findings. Advised supportive measures and signs/symptoms to go to the ER. Pt is appropriate for outpt treatment and f/u. Differential Diagnosis Differential Diagnosis: Otitis media, otitis externa, upper respiratory infection, viral illness Vital Signs Vital Signs: Vital Signs Temperature 101.0 F H 07/27/25 19:42 Pulse Rate 121 H 07/27/25 19:42 Respiratory Rate 20 07/27/25 19:42 Blood Pressure 173/73 H 07/27/25 19:42 Pulse Oximetry 98 07/27/25 19:42 Oxygen Delivery Room Air 07/27/25 19:42 Temperature 101.0 F H 07/27/25 19:42 Pulse Rate 121 H 07/27/25 19:42 Respiratory Rate 20 07/27/25 19:42 Blood Pressure 173/73 H 07/27/25 19:42 Pulse Oximetry 98 07/27/25 19:42 Oxygen Delivery Room Air 07/27/25 19:42 Critical Care Time Critical Care Time Critical Care Time: No Discharge Plan Discharge Clinical Impression: Otitis media Patient Disposition: Home Condition: Stable Instructions: Antibiotic Form, Ear Infection (ED) Additional Instructions: Take antibiotics as directed. Recommend antihistamine such as Zyrtec for congestion. Flonase nasal spray, 1 spray in each nostril once daily until symptoms improve Symptomatic treatment includes: rest, fluids, and increase humidity of the air at home. Tylenol or Motrin as needed for pain or fevers. You may take ibuprofen 600 mg to 800 mg every 6-8 hours. Do not exceed more than 800 mg of ibuprofen per dose. Do not exceed more than 3200 mg ibuprofen in a day. You may take up to 1000 mg Tylenol every 6-8 hours. Do not exceed 1000 mg per dose, do exceed more than 4000 mg of Tylenol in a day. Please schedule a follow-up visit with your personal physician for further evaluation and treatment within 3-5days. If he develops difficulty breathing, chest pain, nausea, vomiting, worsening symptoms, weakness, or any serious concerns please go to the ER immediately. Patient Language: Estonian Prescriptions: New amoxicillin 875 mg tablet 875 mg PO Q12H 7 Days Qty: 14 0RF No Action albuterol sulfate 90 mcg/actuation HFA aerosol inhaler INHALATION lisinopril-hydrochlorothiazide 10-12.5 mg tablet 1 tablet PO DAILY Follow-up/Referrals: Bernice,LEO Bradford [Primary Care Provider] Time of Disposition: 20:00
== END 2025-07-27 20:05 | disposition home or self-care (01) ==
PROVIDERS: PCP Physician Assistant
DX: H66.92 Otitis media, unspecified, left ear (principal); I10 Essential (primary) hypertension; K21.9 Gastro-esophageal reflux disease without esophagitis
CPT/HCPCS: 99213; G0463